=== PATIENT | male | born 1955 | race African-American/Black ===

== ENCOUNTER 2021-02-23 09:23 | Observation (INO) | payer MEDICAID, SELFPAY ==
[2021-02-23] VITALS (12 sets, daily range): BP systolic 110–145; BP diastolic 63–97; PULSE 68–90; RESP 11–28; TEMP 36.6–37.4; O2SAT 90–100; BMI 21.6; BMI 43.8
--- NOTE | 2021-02-23 09:20 | ECG_ITS ---
APPROVED REPORT Exam: Resting ECG HR:89 bpm ECG Measurements Heart Rate 89 AXES VA 142 P 76 QRSd 76 QRS 24 QT 344 T 54 QTc 418 Conclusion Normal sinus rhythm Nonspecific ST abnormality Abnormal ECG Electronically signed by : Bill Holliday, 02/26/2021 07:35:22
--- NOTE | 2021-02-23 09:24 | XR_ITS ---
PROCEDURE: XR CHEST PORTABLE CLINICAL HISTORY: soa Shortness of air, smoker COMPARISON: No exams were available for comparison FINDINGS: The cardiomediastinal silhouette and pulmonary vascularity are within normal limits. COPD changes. Patchy density right midlung which may be due to an area of atelectasis or or fibrosis versus a patchy area of infiltrate.. No acute bony abnormalities. IMPRESSION: Patchy airspace disease in the right midlung which may be due to an area of atelectasis or fibrosis versus infiltrate Dictated by: Magnus Ayoub MD 02/23/2021 10:13 Magnus Ayoub MD in [place] 02/23/2021 10:13
--- NOTE | 2021-02-23 09:42 | PC.NURSE ---
RT at bedside
[2021-02-23 09:45] LABS: Basophils # 0.1 K/mm3 (0-0.2); Basophils % 0.5 % (0.1-2.0); Eosinophils # 0.7 K/mm3 (0.0-0.4); Eosinophils % 3.2 % (0.1-12.0); Hematocrit 36.2 % (42.0-52.0); Hemoglobin 11.6 g/dL (14.1-18.0); Lymphocytes # 2.4 K/mm3 (0.7-4.5); Lymphocytes % 10.9 % (10-50); Mean Corpuscular Hemoglobin 30.1 pg (27.0-31.2); Mean Platelet Volume 9.2 fl (7.4-10.4); Monocytes # 1.6 K/mm3 (0.1-1.0); Monocytes % 7.3 % (1.7-9.3); Neutrophils # 16.9 K/mm3 (1.8-7.8); Neutrophils % 77.9 % (37.0-80.0); Platelet Count 573 K/mm3 (142-424); Red Blood Count 3.85 M/mm3 (4.60-6.20); Red Cell Distribution Width 14.6 % (11.5-17.5); White Blood Count 21.7 K/mm3 (4.8-10.8)
[2021-02-23 09:48] LABS: MANUAL DIFFERENTIAL MANUAL DIFFERENTIAL (MANUAL DIFF)
--- NOTE | 2021-02-23 09:56 | HMH.EDGENADL ---
ED Disposition Clinical Impression: Leukocytosis, Pneumonia Disposition: Admitted As Inpatient Condition on Discharge: Good Referrals: PCP,No [Primary Care Provider] - - Critical Care Critical Care Time: No Attestation: On 02/23/21, the high probability of a clinically significant, sudden or life threatening deterioration of the following system(s) required my full and direct attention, intervention and personal management. The time I documented below is in addition to time spent performing reported procedures but includes the following listed in this critical care notation. Medical Decision Making - Medical Records Medical records reviewed: Yes: I reviewed the patient's medical records. - Derrell Inquiry Pt receiving controlled substance: No Vital Signs: 02/23/21 09:23 02/23/21 10:00 02/23/21 10:15 Temperature 99.3 F Temperature Source Oral Pulse Rate 86 85 Pulse Rate [Radial] 90 Respiratory Rate 28 H 22 22 Blood Pressure 110/63 120/63 Blood Pressure [Right Arm] 145/97 H Blood Pressure Mean [Right Arm] 113 Blood Pressure Position [Right Arm] Sitting 02 Sat by Pulse Oximetry 90 L 95 95 Oxygen Delivery Method Room Air Nasal Cannula Oxygen Flow Rate (LPM) 3 02/23/21 11:00 02/23/21 11:30 Temperature Temperature Source Pulse Rate 82 Pulse Rate [Radial] Respiratory Rate 24 24 Blood Pressure 121/70 129/73 Blood Pressure [Right Arm] Blood Pressure Mean [Right Arm] Blood Pressure Position [Right Arm] 02 Sat by Pulse Oximetry 100 Oxygen Delivery Method Oxygen Flow Rate (LPM) - Lab Data Lab Results 02/23/21 09:34: WBC 21.7 H*, RBC 3.85 L, Hgb 11.6 L, Hct 36.2 L, MCV 94.0, MCH 30.1, MCHC 32.0, RDW 14.6, Plt Count 573 H, MPV 9.2, Neut % (Auto) 77.9, Lymph % (Auto) 10.9, [place] % (Auto) 7.3, Eos % (Auto) 3.2, Baso % (Auto) 0.5, Neut # (Auto) 16.9 H, Lymph # (Auto) 2.4, [place] # (Auto) 1.6 H, Eos # (Auto) 0.7 H, Baso # (Auto) 0.1, Total Counted 100, Neutrophils % (Manual) 81 H, Band Neutrophils % 1.0, Lymphocytes % (Manual) 9 L, Monocytes % (Manual) 6, Eosinophils % (Manual) 3, Platelet Estimate Moderate increase, RBC Morphology Normal 02/23/21 09:54: Lactate 1.3 02/23/21 10:15: Sodium 140, Potassium 3.8, Chloride 102, Carbon Dioxide 30, Anion Gap 11.8, BUN 9, Creatinine 0.70, Estimated Creat Clear 74, Estimated GFR 114, Est GFR ( Amer) 137, Glucose 190 H, Calcium 9.0, Magnesium 1.5 L, Troponin I < 0.01 Result diagrams: 02/23/21 09:34 02/23/21 10:15 Orders (Tests/Meds): ED MEDICATIONS Generic Name Dose Route Start Last Admin Trade Name Freq PRN Reason Stop Dose Admin Ceftriaxone Sodium 1 gm/ 50 mls @ 100 mls/hr 02/23/21 10:00 02/23/21 09:57 Sodium Chloride IV 03/09/21 09:59 100 mls/hr Q24H FADY Administration Protocol Azithromycin 500 mg/ Sodium 250 mls @ 250 mls/hr 02/23/21 10:00 02/23/21 11:41 Chloride IV 03/09/21 09:59 250 mls/hr Q24H FADY Administration Protocol Discontinued Medications Generic Name Dose Route Start Last Admin Trade Name Freq PRN Reason Stop Dose Admin Magnesium Sulfate 2 gm/ Sodium 104 mls @ 100 mls/hr 02/23/21 11:02 Chloride IV 02/23/21 12:04 ONCE ONE ORDERS Category Date Time Status Basic Metabolic Panel AMLAB Lab 02/24/21 06:00 Ordered Complete Blood Count Auto Diff AMLAB Lab 02/24/21 06:00 Ordered Full Resp Panel w/COVID ([facility]) Routine Lab 02/23/21 09:25 Received Lipid Panel AMLAB Lab 02/24/21 06:00 Ordered Magnesium AMLAB Lab 02/24/21 06:00 Ordered Phosphorous AMLAB Lab 02/24/21 06:00 Ordered Troponin I Q3H Lab 02/23/21 12:30 Ordered Troponin I Q3H Lab 02/23/21 15:30 Ordered Blood Culture Stat Micro 02/23/21 09:54 Received Sputum Culture & Gram Stain Stat Micro 02/23/21 09:45 Results Medical Decision Narrative: 66-year-old male presents with symptoms concerning for pneumonia. Vital signs were initially stable. Blood cultures and lactate were obtaine
[2021-02-23 10:12] LABS: Adenovirus,PCR Not Detected (NotDetected); Bordetella Pertussis Not Detected (NotDetected); Chlamydophila Pneumoniae, PCR Not Detected (NotDetected); Coronavirus 19, PCR Not Detected (NotDetected); Coronavirus 229E Not Detected (NotDetected); Coronavirus NL63 Not Detected (NotDetected); Coronavirus OC43 Not Detected (NotDetected); Coronovirus HKU1,PCR Not Detected (NotDetected); Human Metapneumovirus Not Detected (NotDetected); Influenza A, PCR Not Detected (NotDetected); Influenza AH1, 2009 Not Detected (NotDetected); Influenza AH1, PCR Not Detected (NotDetected); Influenza AH3,PCR Not Detected (NotDetected); Influenza B, PCR Not Detected (NotDetected); Mycoplasma Pneumoniae, PCR Not Detected (NotDetected); Parainfluenza 1, PCR Not Detected (NotDetected); Parainfluenza 2, PCR Not Detected (NotDetected); Parainfluenza 3, PCR Not Detected (NotDetected); Parainfluenza 4, PCR Not Detected (NotDetected); Respiratory Syncytial Virus Not Detected (NotDetected); Rhinovirus/Enterovirus Not Detected (NotDetected)
[2021-02-23 10:15] LABS: Eosinophils % 3 % (0-3); Lymphocytes % 9 % (10-50); Monocytes % 6 % (2-9); Neutrophils % 81 % (42-76); Total Cells Counted 100
[2021-02-23 10:16] LABS: Platelet Estimate Moderate Increase; RBC Morphology Normal
[2021-02-23 10:19] LABS: Lactic Acid 1.3 mmol/L (0.7-2.1)
--- NOTE | 2021-02-23 10:30 | PC.NURSE ---
PT RESTING UPDATED ON PLAN OF CARE
[2021-02-23 10:33] LABS: Chloride 102 mmol/L (98-107); Sodium 140 mmol/L (136-145)
[2021-02-23 10:34] LABS: Potassium 3.8 mmoL/L (3.5-5.1)
[2021-02-23 10:36] LABS: Blood Urea Nitrogen 9 mg/dl (9-20); Creatinine Clearance Estimated 74 mL/min (50-200); Estimated Glomerular Filt Rate 114 ml/min (>60); GFR (African American) 137 ML/MIN (>60)
[2021-02-23 10:37] LABS: Anion Gap 11.8 mEq/L (5-15); Carbon Dioxide 30 mmol/L (22.0-30.0); Glucose 190 mg/dl (74-100); Magnesium 1.5 mg/dl (1.6-2.3)
[2021-02-23 10:56] LABS: Troponin I < 0.01 ng/ml (0.00-0.034)
--- NOTE | 2021-02-23 11:40 | PC.NURSE ---
call center coordinator for Dr Brown paged. Dr Ventura to return call.
--- NOTE | 2021-02-23 12:30 | PC.NURSE ---
Dr Oleary speaking with Dr Ventura
--- NOTE | 2021-02-23 13:30 | PC.NURSE ---
Pt arrived to the floor at this time.
--- NOTE | 2021-02-23 14:06 | P.CONPHA_ITS ---
[facility] Pharmacy VTE Monitoring - Patient Demographics Admission date: 02/23/21 Report Date: 02/23/21 Time: 14:07 Allergies/Adverse Reactions: Patient Allergies fluphenazine Allergy (Verified 02/23/21 09:47) haloperidol [From Haldol] Allergy (Verified 02/23/21 09:47) Height: 1.8 m Weight: 70.307 kg Patient Problems: Current Active Problems Leukocytosis (Acute) Pneumonia (Acute) - VTE Risk Labs: VTE Related Lab Results Hgb 11.6 g/dL (14.1-18.0) L 02/23/21 09:34 Hct 36.2 % (42.0-52.0) L 02/23/21 09:34 Plt Count 573 K/mm3 (142-424) H 02/23/21 09:34 BUN 9 mg/dl (9-20) 02/23/21 10:15 Creatinine 0.70 mg/dl (0.66-1.25) 02/23/21 10:15 Estimated Creat Clear 74 mL/min (50-200) 02/23/21 10:15 VTE Score: 4 VTE Risk Level: Low Risk - Prophylaxis VTE Prophylaxis Ordered?: Yes Types of VTE Prophylaxis: TEDS Knee High Location of Applied Device: Bilateral Lower Extremeties
[2021-02-23 14:12] LABS: Troponin I < 0.01 ng/ml (0.00-0.034)
[2021-02-23 16:23] LABS: Troponin I < 0.01 ng/ml (0.00-0.034)
[2021-02-23 16:34] LABS: POC Glucose,Bedside 73 (70-110)
--- NOTE | 2021-02-23 19:40 | PC.NURSE ---
PT IS RESTING IN BED. NO COMPLAINTS OF DISCOMFORT. ACCORDING TO PT HE HAS ONLY BEEN AT [facility] FOR ABOUT 4 MONTHS. PT LIVED IN A FACILITY AT [place] FOR SEVERAL YEARS UNTIL THE FACILITY SHUT DOWN AND HE WAS TRANSFERRED TO [facility]. PT STATES ALL THE WAY UP TILL A COUPLE OF DAYS AGO HE WAS UP AMBULATING AND GOING OUTSIDE. PT STATED THE LAST FEW DAYS HIS COUGH HAS GOT WORSE AND HE'S BEEN VERY WEAK. ON ASSESSMENT PT HAD SCATTERED WHEEZES/RHONCHI. ABDOMEN SOFT/NON TENDER WITH ACTIVE BOWEL SOUNDS. SCAR NOTED TO THE ABDOMEN THAT PT STATES IS FROM A SURGERY (PT STATED THEY REMOVED 1/2 OF HIS LEFT KIDNEY AND SPLEEN 4 MONTHS AGO DUE TO CANCER) . ACCORDING TO STAFF FROM [facility] HE HAS HAD HALF OF BOTH KIDNEYS REMOVED AND HIS SPLEEN AND THE SURGERY TOOK PLACE YEARS AGO. ACCORDING TO PT AND [facility] STAFF HE HAS NOT FOLLOWED UP WITH THE DOCTORS THAT DID THE SURGERY. PT HAS MULTIPLE TATTOOS THAT HE STATED HE GOT [facility]. PT HAD A TOTAL BATH THIS SHIFT. PT STATES HE HAS HAD SOME WEIGHT LOSS RECENTLY BUT DID NOT KNOW HOW MUCH. REPORT HAND OFF TO JULIET ZEPEDA.
--- NOTE | 2021-02-23 22:32 | PC.NURSE ---
RA SATS WERE 91%. PT WAS NOT PLACED BACK ON O2.
[2021-02-24] VITALS: BP 132/64; PULSE 70; RESP 17; TEMP 36.6; O2SAT 94
[2021-02-24 04:00] VITALS: BP 127/82; PULSE 70; PULSE 80; RESP 17; TEMP 36.6; O2SAT 94
--- NOTE | 2021-02-24 05:04 | PC.NURSE ---
pt is AxOx4, has rested most of shift, expiratory rhonchi noted on auscultation, has been on room air t/o most of shift with O2 sats at 94%, no complaints of SOA or chest pain
[2021-02-24 05:30] VITALS: BMI 43.9
--- NOTE | 2021-02-24 07:49 | SW/DCPLANNER ---
This patient currently resides at [facility]. I have spoke with Jennifer from [facility] and she stated that patient does well at their facility physically. I will continue to follow up with Jennifer until patient is medically stable for discharge.
[2021-02-24 08:00] VITALS: BP 147/88; PULSE 80; PULSE 83; RESP 17; TEMP 36.7; O2SAT 95
[2021-02-24 08:31] LABS: Basophils # 0.1 K/mm3 (0-0.2); Basophils % 0.4 % (0.1-2.0); Eosinophils # 0.6 K/mm3 (0.0-0.4); Hematocrit 36.4 % (42.0-52.0); Hemoglobin 11.2 g/dL (14.1-18.0); Lymphocytes # 1.6 K/mm3 (0.7-4.5); Lymphocytes % 7.8 % (10-50); Mean Corpuscular HGB Conc 30.7 g/dL (31.8-35.4); Mean Corpuscular Volume 94.4 fl (80-94); Mean Platelet Volume 8.4 fl (7.4-10.4); Monocytes # 1.2 K/mm3 (0.1-1.0); Monocytes % 6.2 % (1.7-9.3); Neutrophils # 16.4 K/mm3 (1.8-7.8); Neutrophils % 82.6 % (37.0-80.0); Platelet Count 566 K/mm3 (142-424); Red Blood Count 3.85 M/mm3 (4.60-6.20); Red Cell Distribution Width 14.8 % (11.5-17.5); White Blood Count 19.9 K/mm3 (4.8-10.8)
[2021-02-24 08:34] LABS: MANUAL DIFFERENTIAL MANUAL DIFFERENTIAL (MANUAL DIFF)
[2021-02-24 08:36] LABS: Chloride 99 mmol/L (98-107); Sodium 139 mmol/L (136-145)
[2021-02-24 08:37] LABS: Potassium 4.2 mmoL/L (3.5-5.1)
[2021-02-24 08:39] LABS: Blood Urea Nitrogen 9 mg/dl (9-20); Creatinine Clearance Estimated 67 mL/min (50-200); Estimated Glomerular Filt Rate 114 ml/min (>60); GFR (African American) 137 ML/MIN (>60)
[2021-02-24 08:40] LABS: Anion Gap 11.2 mEq/L (5-15); Calcium 9.2 mg/dl (8.4-10.2); Carbon Dioxide 33 mmol/L (22.0-30.0); Chol/HDL Ratio 5.7 (1-3.5); Cholesterol 120 mg/dl (140-200); Glucose 228 mg/dl (74-100); HDL Cholesterol 21 mg/dl (40-60); Magnesium 1.8 mg/dl (1.6-2.3); Phosphorous 3.8 mg/dl (2.5-4.5); Triglycerides 144 mg/dl (30-150); VLDL Cholesterol 29 mg/dL (0-40)
[2021-02-24 08:51] LABS: Direct LDL Cholesterol 53.03 mg/dL (100-129)
[2021-02-24 08:55] LABS: Eosinophils % 4 % (0-3); Lymphocytes % 4 % (10-50); Monocytes % 10 % (2-9); Neutrophils % 81 % (42-76); Platelet Estimate Moderate Increase; RBC Morphology Normal; Total Cells Counted 100
--- NOTE | 2021-02-24 09:59 | HMH.OTEV ---
OT Inpatient Evaluation Rehab OT IP Evaluation Start: 02/24/21 09:15 Freq: ONCE Status: Complete Protocol: Document 02/24/21 09:51 MARY JANE (Rec: 02/24/21 09:59 ARELIFERNANDEZ [id number]) Rehab OT IP Assessment Subjective History 66-year-old male with history of renal cancer presents with cough for the last few days. He says that he has been short of breath as well. No chest pain. He claims to have subjective fever as well. He lives in assisted living area but does not have help routinely. Has productive cough. No abdominal pain nausea vomiting headaches. Recent COVID-19 exposures. Patient admitted on 02/23/21 for Leukocytosis, Pneumonia. Patient currently lives in personal retirement of [facility] where he completed all ADLs and fx'l tasks independently. Instructed Patient on safety awareness during bed mobility, transfers and ambulation to assess safety and balance. Instructed Patient on ADL of d/d footwear material. However Patient refused to participate in ADL task. Subjective I can try to stand up. Patient completed bed mobility , transfers and ambulation with no AE/devices requiring Min A for proper sequencing, safety and fair+ dynamic standing balance. LOB noted x1 with requiring assistance to prevent fall risk. Objective Patient Orientation Person,Place,Name,Birthday, Year Upper Extremity Gross ROM WNL Bed Mobility bed mobility - supine/sit Assist Level Minimal x 1 (25% assist) Transfer Training Sit/Stand/Pivot Transfer Assist Level Minimal x 1 (25% assist) Chair Transfer Ability Minimal x 1 (25% assist) Chair Transfer Technique Sit to/from Ambulatory Chair Transfer Assistive Devices None Rehab OT IP prob,goals,plan
--- NOTE | 2021-02-24 11:45 | HMH.PTEV ---
Physical Therapy Evaluation Rehab PT IP Evaluation Start: 02/24/21 09:15 Freq: ONCE Status: Active Protocol: Document 02/24/21 11:00 ERIK (Rec: 02/24/21 11:45 [id number]) Subjective/History History History 66 yowm adm with CAP and general weaskness. He resides at a personal chcf and is independent with all mobility prior to adm. Subjective Subjective Pt with no c/o this am, agrees to OOB. Rehab PT IP Eval Objective Appearance Patient Behavior Appropriate Patient Orientation Person,Place,Time Difficulty following instructions none Speech Pattern Clear Ambulation Patient Able to Ambulate Yes Ambulation Observation IP General Gait Pattern Observation Wide Based Gait Ambulation Distance (feet) 40 Ambulation Assistive Device None Ambulation Ability Supervision/Stand by Balance Ability to Arise Able, uses arms to help Sitting Balance Steady, safe Standing Balance Narrow stance w/o support Dynamic Sitting Balance Ability Good Dynamic Standing Balance Ability Good Transfers Bed Transfer Ability Supervision/Stand by Chair Transfer Ability Supervision/Stand by Sit to Stand Bed Transfer Ability Supervision/Stand by Sit to Stand Chair Transfer Ability Supervision/Stand by ROM All Extremities PT ROM Status WFL MMT All Extremities PT MMT WFL Rehab PT IP prob,goals,plan Problems Date of Evaluation: 02/24/21 Discharge Plan PT Discharge Plan Pt is independent with all mobility at this time and is appropriate to return to personal chcf once medically stable. No inpatient therapy needs at this time. G -code Required No Eval Complexity Eval Charge Codes 70997 - Moderate Complexity PHYSICIAN CERTIFICATION: I certify the specified therapy services for Ba Russell are required, authorized, and reviewed every 30 days.
[2021-02-24 12:00] VITALS: BP 172/93; PULSE 80; PULSE 94; RESP 24; TEMP 36.9; O2SAT 91
--- NOTE | 2021-02-24 13:24 | HMH.PHAINT ---
MEDICATION RECONCILIATION COMPLETED ON PATIENT USING MAR FROM [facility]. -ÓSCAR LÓPEZ, SOWMYAD
[2021-02-24 16:00] VITALS: BP 131/67; PULSE 80; PULSE 87; RESP 18; TEMP 36.9; O2SAT 93
--- NOTE | 2021-02-24 17:21 | HMH.HP ---
*Admission Date: 02/23/21 *Chief complaint: soa *History of present illness: 66-year-old male from a personal residential with history of renal cancer presents with cough for the last few days.Pt states he has been soa, o2 sat 90% on room air, increase work for breathing, coughing up thick sputum,fever and denies n/V/D. No chest pain. No abdominal pain nausea vomiting headaches. Pt admitted for pneumonia. [facility] History I have reviewed the patient's past medical history: Yes Medical History: Reports:: Cancer (kidney cancer), Diabetes Mellitus Type 2 Denies:: Diabetes Mellitus Type 1, MRSA *Have you ever received a pneumonia vaccine?: Yes *Have you received a flu vaccine this season?: Yes Other Surgeries: Yes: Cardiac Catheterization Amputation: No Fractures: No - *Social History Last grade of school completed: 5th or 6th Smoking Status: Current every day smoker Tobacco Type: cigarettes, smokeless tobacco # Packs/Day (cigarettes): 1 Alcohol Intake: former *Occupational Status:: disabled Housing: assisted living facility *Travel in the last 8 weeks: None Family Hx:: Unable to obtain Review of Systems - Review of Systems Review of systems:: pertinent systems reviewed and negative unless documented below - Constitutional Reports fever(s) - Eyes Denies blurry vision - ENT Denies dry mouth - *Cardiovascular Reports shortness of breath, Reports shortness of breath with activity, Denies chest pain with activity - *Respiratory Reports cough, Reports shortness of breath with activity ( ) - *Gastrointestinal Denies abdominal pain - *Genitourinary Denies urinary frequency - *Musculoskeletal Denies joint pain - Integumentary/Breasts Denies rash - *Neurologic Denies dizziness, Denies headache(s), Denies numbness, Denies weakness - Psychiatric Denies lack of enjoyment - Endocrine Denies excessive sweating - Hematologic/Lymphatic Denies enlarged lymph nodes - Allergic/Immunologic Denies itchy eyes Meds Home Medications Medication Instructions Recorded Confirmed Type Albuterol Sulfate [Proair 1 puff IH Q6HP PRN 02/23/21 02/24/21 History Digihaler] Aspirin [Aspirin 325mg Tab] 325 mg PO DAILY 02/23/21 02/23/21 History Azelastine HCl [Azelastine Nasal 2 sprays NS BID 02/23/21 02/24/21 History [place] 30mL Bottle] Divalproex Sodium [Divalproex 500 mg PO TID 02/23/21 02/23/21 History Sodium ER] Ferrous Sulfate 325 mg PO BID 02/23/21 02/24/21 History Ipratropium/Albuterol Sulfate 1 puff IH TID 02/23/21 02/24/21 History [Combivent Respimat Inh] Isosorbide Mononitrate [Isosorbide 30 mg PO DAILY 02/23/21 02/23/21 History Mononitrate ER] Levothyroxine Sodium 25 mcg PO DAILY 02/23/21 02/23/21 History [Levothyroxine 25mcg (0.025mg) Tab] Metformin HCl [Metformin 1000mg 1,000 mg PO BIDWM 02/23/21 02/24/21 History Tablets] Metoprolol Succinate [Metoprolol 100 mg PO BID 02/23/21 02/24/21 History Succinate 100mg Tablet*] Nitroglycerin 0.4 mg SL Q5MINP PRN 02/23/21 02/24/21 History OLANZapine [Zyprexa 5mg tablet] 5 mg PO HS 02/23/21 02/23/21 History OLANZapine [Zyprexa] 10 mg PO BID 02/23/21 02/23/21 History Omeprazole 20 mg PO DAILY 02/23/21 02/23/21 History Roflumilast [Daliresp] 250 mcg PO DAILY 02/23/21 02/23/21 History Rosuvastatin Calcium 10 mg PO HS 02/23/21 02/24/21 History Sennosides/Docusate Sodium 1 each PO DAILY 02/23/21 02/23/21 History [Senexon-S 50-8.6 mg Tablet] Sertraline HCl 150 mg PO DAILY 02/23/21 02/24/21 History Sitagliptin Phosphate [Januvia 100 mg PO DAILY 02/23/21 02/23/21 History 100mg tablet] Zafirlukast 20 mg PO BID 02/23/21 02/23/21 History clonazePAM [Clonazepam] 0.5 mg PO BID 02/23/21 02/23/21 History lisinopriL [Lisinopril] 5 mg PO DAILY 02/23/21 02/23/21 History polyethylene glycoL 3350 [Gavilax] 17 gm PO DAILY 02/23/21 02/24/21 History Acetaminophen [Acetaminophen Extra 1,000 mg PO TIDP PRN 02/24/21 02/24/21 History Strength] Fluticas
--- NOTE | 2021-02-24 17:51 | PC.NURSE ---
Pt has been pleasant and cooperative this shift. A&O X4. No complaints of pain or SOA. Pt requested cough medicine this AM and received Robitussin per MAR with favorable results. Pt is on room air with sats. >90%. Telemetry reveals NSR. Lung sounds reveal inspiratory/expiratory rhonchi. No edema noted. Skin is C/D/I. Pt uses the urinal to void clear, yellow urine without issue. No BM this shift. Pt ambulates to/from the bathroom and throughout the room with stand-by assistance. Pt worked with PT/OT this shift and sat up in the recliner for a couple hours today. 20 G peripheral IV in the RT wrist is patent and infusing NS @ 50 ML/HR. Bed safety alarm is set. VSS. Call light within reach. Will continue to monitor.
[2021-02-24 20:00] VITALS: BP 114/62; PULSE 80; RESP 20; TEMP 36.6; O2SAT 92
[2021-02-25] VITALS (7 sets, daily range): BP systolic 104–113; BP diastolic 53–65; PULSE 60–80; RESP 16–18; TEMP 36.6–36.9; O2SAT 92–93; BMI 26.4
--- NOTE | 2021-02-25 05:30 | PC.NURSE ---
pt has rested well t/o shift, remains on room air, inspiratory and expiratory rhonchi noted on auscultation, O2 sats 92-93%, no complaints of SOA or chest pain, did complain of cough
--- NOTE | 2021-02-25 11:24 | HMH.DCSUM ---
General - General Admission date:: 02/23/21 Discharge date: 02/25/21 HPI HPI: 66-year-old male from a personal residential with history of renal cancer presents with cough for the last few days.Pt states he has been soa, o2 sat 90% on room air, increase work for breathing, coughing up thick sputum,fever and denies n/V/D. No chest pain. No abdominal pain nausea vomiting headaches. Pt admitted for pneumonia. Hospital Course Hospital Course: Laboratory Tests 02/23/21 02/23/21 02/23/21 09:25 09:34 09:54 WBC 21.7 H* RBC 3.85 L Hgb 11.6 L Hct 36.2 L MCV 94.0 MCH 30.1 MCHC 32.0 RDW 14.6 Plt Count 573 H MPV 9.2 Neut % (Auto) 77.9 Lymph % (Auto) 10.9 [place] % (Auto) 7.3 Eos % (Auto) 3.2 Baso % (Auto) 0.5 Neut # (Auto) 16.9 H Lymph # (Auto) 2.4 [place] # (Auto) 1.6 H Eos # (Auto) 0.7 H Baso # (Auto) 0.1 Total Counted 100 Neutrophils % (Manual) 81 H Band Neutrophils % 1.0 Lymphocytes % (Manual) 9 L Atypical Lymphs % Monocytes % (Manual) 6 Eosinophils % (Manual) 3 Platelet Estimate Moderate increase RBC Morphology Normal Sodium Potassium Chloride Carbon Dioxide Anion Gap BUN Creatinine Estimated Creat Clear Estimated GFR Est GFR ( Amer) Glucose POC Glucose Lactate 1.3 Calcium Phosphorus Magnesium Troponin I Triglycerides Cholesterol LDL Cholesterol Direct VLDL Cholesterol HDL Cholesterol Cholesterol/HDL Ratio Chlamy pneumoniae PCR Not detected Adenovirus (PCR) Not detected B. pertussis DNA (PCR) Not detected Coronavirus OC43 (PCR) Not detected Coronavirus HKU1 (PCR) Not detected Coronavirus 229E (PCR) Not detected SARS-CoV-2 (PCR) Not detected Coronavirus NL63 (PCR) Not detected Human Metapneumovir PCR Not detected Influenza A (H1) PCR Not detected Influ A (H1N1/09) PCR Not detected Influenza A (H3) PCR Not detected Influenza Type A (PCR) Not detected Influenza Type B (PCR) Not detected M. pneumoniae (PCR) Not detected Parainfluenza 1 (PCR) Not detected Parainfluenza 2 (PCR) Not detected Parainfluenza 3 (PCR) Not detected Parainfluenza 4 (PCR) Not detected RSV (PCR) Not detected Entero/Rhino (PCR) Not detected 02/23/21 02/23/21 02/23/21 10:15 13:25 15:48 WBC RBC Hgb Hct MCV MCH MCHC RDW Plt Count MPV Neut % (Auto) Lymph % (Auto) [place] % (Auto) Eos % (Auto) Baso % (Auto) Neut # (Auto) Lymph # (Auto) [place] # (Auto) Eos # (Auto) Baso # (Auto) Total Counted Neutrophils % (Manual) Band Neutrophils % Lymphocytes % (Manual) Atypical Lymphs % Monocytes % (Manual) Eosinophils % (Manual) Platelet Estimate RBC Morphology Sodium 140 Potassium 3.8 Chloride 102 Carbon Dioxide 30 Anion Gap 11.8 BUN 9 Creatinine 0.70 Estimated Creat Clear 74 Estimated GFR 114 Est GFR ( Amer) 137 Glucose 190 H POC Glucose Lactate Calcium 9.0 Phosphorus Magnesium 1.5 L Troponin I < 0.01 < 0.01 < 0.01 Triglycerides Cholesterol LDL Cholesterol Direct VLDL Cholesterol HDL Cholesterol Cholesterol/HDL Ratio Chlamy pneumoniae PCR Adenovirus (PCR) B. pertussis DNA (PCR) Coronavirus OC43 (PCR) Coronavirus HKU1 (PCR) Coronavirus 229E (PCR) SARS-CoV-2 (PCR) Coronavirus NL63 (PCR) Human Metapneumovir PCR Influenza A (H1) PCR Influ A (H1N1/09) PCR Influenza A (H3) PCR Influenza Type A (PCR) Influenza Type B (PCR) M. pneumoniae (PCR) Parainfluenza 1 (PCR) Parainfluenza 2 (PCR) Parainfluenza 3 (PCR) Parainfluenza 4 (PCR) RSV (PCR) Entero/Rhino (PCR) 02/23/21 02/24/21 02/24/21 15:51 08:05 08:05 WBC 19.9 H RBC 3.85 L Hgb 11.2 L Hct 36.
== END 2021-02-25 13:20 | disposition home or self-care (01) ==
LOC: ER 12:40 → 2ND 13:27
PROVIDERS: Admitting Provider Family Medicine; Emergency Provider Emergency Medicine; PCP Emergency Medicine; Visit Provider Family Medicine
DX: J18.9 Pneumonia, unspecified organism (principal); C64.9 Malignant neoplasm of unspecified kidney, except renal pelvis; E11.9 Type 2 diabetes mellitus without complications; Z79.84 Long term (current) use of oral hypoglycemic drugs; Z79.899 Other long term (current) drug therapy; Z72.0 Tobacco use
CPT/HCPCS: 36415; 71045; 80048; 80061; 82962; 83605; 83735; 84100; 84484; 85007; 85025; 87040; 87070; 87186; 87205; 87581; 87633; 87798; 93005; 94640; 94760; 94761; 96365; 96367; 97162; 97165; 97530; 99284; G0378; J0456

== ENCOUNTER 2021-03-04 21:39 | Emergency (ER) | payer MEDICAID, SELFPAY ==
[2021-03-04 21:37] VITALS: BP 124/80; PULSE 76; RESP 18; TEMP 36.7; O2SAT 100; BMI 24.4
[2021-03-04 22:00] VITALS: BP 134/71; PULSE 79; O2SAT 96
[2021-03-04 22:30] VITALS: BP 127/63; PULSE 75
[2021-03-04 22:34] LABS: Basophils # 0.1 K/mm3 (0-0.2); Basophils % 0.6 % (0.1-2.0); Eosinophils % 18.9 % (0.1-12.0); Hematocrit 33.3 % (42.0-52.0); Hemoglobin 10.1 g/dL (14.1-18.0); Lymphocytes # 4.1 K/mm3 (0.7-4.5); Lymphocytes % 25.5 % (10-50); Mean Corpuscular HGB Conc 30.5 g/dL (31.8-35.4); Mean Corpuscular Hemoglobin 29.3 pg (27.0-31.2); Mean Corpuscular Volume 96.2 fl (80-94); Mean Platelet Volume 8.3 fl (7.4-10.4); Monocytes # 1.1 K/mm3 (0.1-1.0); Monocytes % 6.7 % (1.7-9.3); Neutrophils # 7.7 K/mm3 (1.8-7.8); Neutrophils % 48.4 % (37.0-80.0); Red Blood Count 3.46 M/mm3 (4.60-6.20); Red Cell Distribution Width 15.3 % (11.5-17.5); White Blood Count 15.9 K/mm3 (4.8-10.8)
[2021-03-04 22:35] LABS: Platelet Count 649 K/mm3 (142-424)
[2021-03-04 22:36] LABS: MANUAL DIFFERENTIAL MANUAL DIFFERENTIAL (MANUAL DIFF)
[2021-03-04 22:42] LABS: Alanine Aminotransferase 12 U/L (12-78); Albumin/Globulin Ratio 0.9 (1.1-1.8); Alkaline Phosphatase 101 U/L (38-126); Anion Gap 11.8 mEq/L (5-15); Aspartate Amino Transferase 23 U/L (17-59); Blood Urea Nitrogen 4 mg/dl (9-20); Calcium 8.5 mg/dl (8.4-10.2); Carbon Dioxide 27 mmol/L (22.0-30.0); Chloride 106 mmol/L (98-107); Creatinine Clearance Estimated 86 mL/min (50-200); Estimated Glomerular Filt Rate 97 ml/min (>60); GFR (African American) 118 ML/MIN (>60); Globulin 3.5 g/dL (1.3-3.2); Glucose 161 mg/dl (74-100); Potassium 3.8 mmoL/L (3.5-5.1); Sodium 141 mmol/L (136-145); Total Protein,Serum 6.5 g/dl (6.3-8.2)
[2021-03-04 22:47] LABS: C-Reactive Protein 5.4 mg/L (0-4)
[2021-03-04 22:51] LABS: Bilirubin,Total < 0.1 mg/dl (0.2-1.3); Ethyl Alcohol < 10 mg/dl (0-10)
[2021-03-04 22:52] LABS: Acetaminophen < 10 ug/ml (10-30); Salicylate < 1.0 mg/dL (2.0-20.0)
[2021-03-04 22:54] LABS: Valproic Acid, (Depakene) 41.4 ug/ml (50-100)
[2021-03-04 23:00] VITALS: BP 132/70; PULSE 72
[2021-03-04 23:00] LABS: Erythrocyte Sedimentation Rate > 140 mm/hr (0-20)
--- NOTE | 2021-03-04 23:03 | HMH.EDPSYCH ---
ED Disposition Clinical Impression: Chronic schizophrenia, COPD (chronic obstructive pulmonary disease) with acute bronchitis Disposition: Home, Self-Care Condition on Discharge: Good Instructions: DI for Psychosis Additional Instructions: will see pcp for follow up Referrals: Stephane Brown MD [Primary Care Provider] - - Critical Care Critical Care Time: No Attestation: On 03/04/21, the high probability of a clinically significant, sudden or life threatening deterioration of the following system(s) required my full and direct attention, intervention and personal management. The time I documented below is in addition to time spent performing reported procedures but includes the following listed in this critical care notation. Medical Decision Making - Medical Records Medical records reviewed: Yes: I reviewed the patient's medical records. - Derrell Inquiry Pt receiving controlled substance: No Vital Signs: 03/04/21 21:37 03/04/21 22:00 03/04/21 22:30 Temperature 98.1 F Temperature Source Oral Pulse Rate 79 75 Pulse Rate [Right] 76 Respiratory Rate 18 Blood Pressure 134/71 127/63 Blood Pressure [Right Arm] 124/80 Blood Pressure Mean 88 84 Blood Pressure Mean [Right Arm] 94 Blood Pressure Source [Right Arm] Automatic Cuff 02 Sat by Pulse Oximetry 100 96 Oxygen Delivery Method Room Air 03/04/21 23:00 03/05/21 00:01 03/05/21 00:30 Temperature Temperature Source Pulse Rate 72 61 Pulse Rate [Right] Respiratory Rate Blood Pressure 132/70 166/90 H 172/90 H Blood Pressure [Right Arm] Blood Pressure Mean 90 103 117 Blood Pressure Mean [Right Arm] Blood Pressure Source [Right Arm] 02 Sat by Pulse Oximetry 95 96 Oxygen Delivery Method Room Air Room Air - Lab Data Lab results reviewed: Yes: I reviewed the patient's lab results. Lab Results 03/04/21 22:20: WBC 15.9 H, RBC 3.46 L, Hgb 10.1 L, Hct 33.3 L, MCV 96.2 H, MCH 29.3, MCHC 30.5 L, RDW 15.3, Plt Count 649 H, MPV 8.3, Neut % (Auto) 48.4, Lymph % (Auto) 25.5, [place] % (Auto) 6.7, Eos % (Auto) 18.9 H, Baso % (Auto) 0.6, Neut # (Auto) 7.7, Lymph # (Auto) 4.1, [place] # (Auto) 1.1 H, Eos # (Auto) 3.0 H, Baso # (Auto) 0.1, ESR > 140 H 03/04/21 22:20: Sodium 141, Potassium 3.8, Chloride 106, Carbon Dioxide 27, Anion Gap 11.8, BUN 4 L, Creatinine 0.80, Estimated Creat Clear 86, Estimated GFR 97, Est GFR ( Amer) 118, Glucose 161 H, Calcium 8.5, Total Bilirubin < 0.1 L, AST 23, ALT 12, Alkaline Phosphatase 101, C-Reactive Protein 5.4 H, Total Protein 6.5, Albumin 3.0 L, Globulin 3.5 H, Albumin/Globulin Ratio 0.9 L, Salicylates < 1.0 L, Acetaminophen < 10 L 03/04/21 22:20: Plasma/Serum Alcohol < 10 03/04/21 22:20: TSH 1.09, Thyroxine (T4) 9.3, Total Valproic Acid 41.4 L 03/04/21 22:20: Troponin I < 0.01 03/04/21 23:27: Urine Color Yellow, Urine Appearance Clear, Urine pH 6.0, Ur Specific [place] 1.010, Urine Protein Negative, Urine Glucose (UA) Negative, Urine Ketones Negative, Urine Blood Negative, Urine Nitrate Negative, Urine Bilirubin Negative, Urine Urobilinogen 0.2, Ur Leukocyte Esterase Negative, Urine RBC None, Urine WBC None, Ur Squamous Epith Cells Occasional, Urine Bacteria None Result diagrams: 03/04/21 22:20 03/04/21 22:20 Orders (Tests/Meds): ED MEDICATIONS Generic Name Dose Route Start Last Admin Trade Name Freq PRN Reason Stop Dose Admin Sodium Chloride 1,000 mls @ 999 mls/hr 03/04/21 22:15 03/04/21 22:26 Sod Chlor 0.9% 1000ml Bag IV 03/04/21 23:15 999 mls/hr .Q1H1M FADY Administration ORDERS Category Date Time Status CT chest wo con Stat Cat Scan 03/04/21 23:[address] head/brain wo con Stat Cat Scan 03/04/21 23:32 Taken Complete Blood Count Auto Diff Stat Lab 03/04/21 22:20 Results Drug Screen,Urine Stat Lab 03/04/21 23:27 Received Erythrocyte Sedimentation Rate Stat Lab 03/04/21 22:20 Results Troponin I Q3H Lab 03/05/21 02:15 Ordered Troponin I Q3H Lab
[2021-03-04 23:08] LABS: T4 (Thyroxine) 9.3 ug/dl (5.53-11.0)
--- NOTE | 2021-03-04 23:08 | CT_ITS ---
PROCEDURE: CT CHEST WO CON CLINICAL INDICATION: CHEST PAIN COMPARISON: CR XR CHEST PORTABLE from 02/23/2021 TECHNIQUE: Axial images obtained with sagittal and coronal reformats. All CT scans at the facility use one or more dose reduction, viz: automated exposure control, ma/kV adjustment per patient size (including targeted exams where dose is matched to indication, i.e. head), or iterative reconstruction technique. FINDINGS: Coronary artery stents and or calcifications noted. There are few scattered small mediastinal lymph nodes. Prominent paraseptal emphysematous changes are present with scattered blebs/bulla. Bronchial thickening with bronchiectasis with scattered cystic changes within the lungs.. There are trace bilateral effusions. Mild atelectatic changes are present in the lung bases. There postsurgical changes in the upper abdomen on the left. Prior left nephrectomy. Prior splenectomy. Nodular soft tissue density with partial calcification/sutures noted in the left upper abdomen posteriorly in the surgical bed and may be due to a splenule measuring 3 cm. Follow-up may confirm stability. No acute bony findings. IMPRESSION: 1. Widespread airway thickening with bronchiectasis and scattered cystic changes along with paraseptal emphysema. Bronchitis with bronchiectasis is considered. The multiple cystic changes could be infective in nature. Langerhans histiocytosis x is a consideration. There are trace bilateral effusions. Pulmonology consult suggested. 2. Postsurgical changes in the upper abdomen on the left Dictated by: Magnus Ayoub MD 03/05/2021 07:47 Magnus Ayoub MD in [facility] 03/05/2021 07:47
[2021-03-04 23:22] LABS: Thyroid Stimulating Hormone 1.09 uIU/mL (0.465-4.68)
--- NOTE | 2021-03-04 23:32 | CT_ITS ---
PROCEDURE: CT HEAD/BRAIN WO CON CLINICAL INDICATION: AMS Altered mental status, altered level of consciousness, confusion, disorientation COMPARISON: No exams were available for comparison TECHNIQUE: Axial images obtained. All CT scans at the facility use one or more dose reduction, viz: automated exposure control, ma/kV adjustment per patient size (including targeted exams where dose is matched to indication, i.e. head), or iterative reconstruction technique. FINDINGS: No midline shift, mass effect, intracranial hemorrhage, hydrocephalus, or extra-axial fluid collection is evident. There is generalized atrophy with hypoattenuation of the periventricular white matter consistent with microangiopathic changes. The calvarium has an unremarkable appearance. Right-sided mastoid effusion. Mild mucosal thickening of the ethmoid sinuses. There is an old left orbital floor and infraorbital rim fracture status post ORIF. IMPRESSION: No acute intracranial finding Dictated by: Magnus Ayoub MD 03/05/2021 07:29 Magnus Ayoub MD in [facility] 03/05/2021 07:29
[2021-03-04 23:44] LABS: Microscopic, Urine URINE MICROSCOPIC (MICROSCOPIC)
[2021-03-04 23:51] LABS: Appearance,Urine CLEAR (Clear); Bilirubin,Urine Negative (Negative); Blood, Urine Negative (Negative); Color,Urine YELLOW (Yellow); Glucose,Urine (UA) Negative (Negative); Ketones,Urine Negative (Negative); Leukocyte Esterase,Urine Negative (Negative); Nitrate,Urine Negative (Negative); Protein,Urine Negative (Negative); Urobilinogen,Urine 0.2 EU/dl (0.2)
[2021-03-05 00:01] VITALS: BP 166/90; PULSE 61; O2SAT 95
[2021-03-05 00:06] LABS: Troponin I < 0.01 ng/ml (0.00-0.034)
[2021-03-05 00:16] LABS: Squamous Epithelial Cell,Urine Occasional #/hpf (0-5)
--- NOTE | 2021-03-05 00:19 | PC.NURSE ---
Lab called to inform of UDS analyzer being down and results will be delayed.
--- NOTE | 2021-03-05 00:25 | PC.NURSE ---
After reviewing pt's med list, pt reports he wants off zoloft and not seroquel. aware.
[2021-03-05 00:30] VITALS: BP 172/90; O2SAT 96
--- NOTE | 2021-03-05 00:34 | PC.NURSE ---
called Cha to notify that Dr. Brown would like to s/w Jennifer regarding pt. Cha will have Jennifer call us back.
[2021-03-05 00:56] VITALS: BP 121/70; PULSE 73; RESP 15; TEMP 36.6
[2021-03-05 02:16] LABS: Eosinophils % 13 % (0-3); Lymphocytes % 23 % (10-50); Monocytes % 6 % (2-9); Neutrophils % 58 % (42-76); Platelet Estimate Slight Increase; Total Cells Counted 100
[2021-03-05 02:17] LABS: Hypochromasia 1+
[2021-03-05 05:47] LABS: Barbiturates Screen,Urine Negative ng/ml (<200); Benzodiazepines Screen,Urine Negative ng/ml (<200)
[2021-03-05 05:48] LABS: Amphetamine/Metha Screen,Urine Negative ng/ml (<1000)
[2021-03-05 05:49] LABS: Cannabinoid Screen,Urine Negative ng/ml (<50); Cocaine Screen,Urine Negative ng/ml (<300)
[2021-03-05 05:50] LABS: Methadone Screen,Urine Negative ng/ml (<300)
[2021-03-05 05:51] LABS: Opiate Screen,Urine Negative ng/ml (<300); Phencyclidine Screen,Urine Negative ng/ml (<25)
== END 2021-03-05 01:03 | disposition home or self-care (01) ==
PROVIDERS: Emergency Provider Emergency Medicine; PCP Emergency Medicine
DX: F20.9 Schizophrenia, unspecified (principal); R44.1 Visual hallucinations; F99 Mental disorder, not otherwise specified; C64.9 Malignant neoplasm of unspecified kidney, except renal pelvis; J44.0 Chronic obstructive pulmonary disease with (acute) lower respiratory infection; E11.9 Type 2 diabetes mellitus without complications; F17.210 Nicotine dependence, cigarettes, uncomplicated; Z79.899 Other long term (current) drug therapy
CPT/HCPCS: 70450; 71250; 80053; 80164; 80305; 80329; 81001; 84436; 84443; 84484; 85007; 85025; 85651; 86140; 96365; 96375; 99283

== ENCOUNTER 2022-03-19 23:04 | Emergency (ER) | payer MEDICARE, MEDICAID, SELFPAY ==
[2022-03-19 22:56] VITALS: BP 158/62; PULSE 75; RESP 18; TEMP 36.6; O2SAT 99; BMI 22.3
[2022-03-19 22:58] VITALS: BMI 22.3
--- NOTE | 2022-03-19 22:58 | XR_ITS ---
PROCEDURE INFORMATION: Exam: XR Thoracic Spine Exam date and time: 03/19/2022 11:09 PM Age: 67 years old Clinical indication: Injury or trauma; Fall; Blunt trauma (contusions or hematomas); Additional info: Fell out of bed yesterday, C/O neck and back pain TECHNIQUE: Imaging protocol: XR of the thoracic spine. Views: 3 views. COMPARISON: CR XR CHEST 2V 03/19/2022 11:06 PM FINDINGS: Bones/joints: Visualized vertebral body heights are preserved. Limited study as upper thoracic spine is not well visualized on lateral radiograph. Soft tissues: Unremarkable. Other findings: Probable cholecystectomy. IMPRESSION: Visualized vertebral body heights are preserved. If symptoms persist correlate with CT or MR. Limited study.
--- NOTE | 2022-03-19 22:58 | CT_ITS ---
PROCEDURE INFORMATION: Exam: CT Head Without Contrast Exam date and time: 03/19/2022 11:25 PM Age: 67 years old Clinical indication: Injury or trauma; Fall; Blunt trauma (contusions or hematomas); Additional info: Fell out of bed yesterday, C/O neck pain TECHNIQUE: Imaging protocol: Computed tomography of the head without contrast. Radiation optimization: All CT scans at this facility use at least one of these dose optimization techniques: automated exposure control; mA and/or kV adjustment per patient size (includes targeted exams where dose is matched to clinical indication); or iterative reconstruction. COMPARISON: CT HEAD/BRAIN WO CON 03/04/2021 11:31 PM FINDINGS: Brain: Age-related volume loss. Decreased attenuation of the supratentorial white matter is likely secondary to chronic microvascular ischemia. No acute intracranial hemorrhage. No midline shift or intracranial mass effect. Cerebral ventricles: No hydrocephalus. Paranasal sinuses: Visualized sinuses are unremarkable. No fluid levels. Mastoid air cells: There is partial opacification of the right mastoid air cells. Bones/joints: Chronic posttraumatic and postoperative change involving the left facial bones. No acute calvarial fracture. Soft tissues: Unremarkable. IMPRESSION: No acute intracranial abnormality.
--- NOTE | 2022-03-19 22:58 | XR_ITS ---
PROCEDURE INFORMATION: Exam: XR Lumbosacral Spine Exam date and time: 03/19/2022 11:10 PM Age: 67 years old Clinical indication: Injury or trauma; Fall; Blunt trauma (contusions or hematomas); Additional info: Fell out of bed yesterday, C/O neck and back pain TECHNIQUE: Imaging protocol: XR of the lumbosacral spine. Views: 2 or 3 views. COMPARISON: CR XR THORACIC SPINE 3V 03/19/2022 11:09 PM FINDINGS: Bones/joints: Multilevel degenerative changes. Visualized vertebral body heights are preserved. Soft tissues: Multiple surgical clips. Vasculature: Atherosclerotic calcifications. IMPRESSION: Visualized vertebral body heights are preserved. If symptoms persist recommend correlation with CT or MR
--- NOTE | 2022-03-19 22:58 | XR_ITS ---
PROCEDURE INFORMATION: Exam: XR Pelvis Exam date and time: 03/19/2022 11:11 PM Age: 67 years old Clinical indication: Injury or trauma; Fall; Blunt trauma (contusions or hematomas); Bilateral; Hip; Additional info: Fell out of bed yesterday TECHNIQUE: Imaging protocol: XR pelvis. Views: 1 or 2 view. COMPARISON: No relevant prior studies available. FINDINGS: Bones/joints: Sacrum is obscured by overlying bowel air. No evidence of acute fracture. Soft tissues: Unremarkable. IMPRESSION: No evidence of acute fracture. If symptoms persist, recommend repeat radiograph in 5-7 days.
--- NOTE | 2022-03-19 22:58 | CT_ITS ---
PROCEDURE INFORMATION: Exam: CT Cervical Spine Without Contrast Exam date and time: 03/19/2022 11:25 PM Age: 67 years old Clinical indication: Injury or trauma; Fall; Blunt trauma; Additional info: Fell out of bed yesterday, C/O neck pain TECHNIQUE: Imaging protocol: Computed tomography images of the cervical spine without contrast. Radiation optimization: All CT scans at this facility use at least one of these dose optimization techniques: automated exposure control; mA and/or kV adjustment per patient size (includes targeted exams where dose is matched to clinical indication); or iterative reconstruction. COMPARISON: CT CHEST WO CON 03/04/2021 11:34 PM FINDINGS: Bones/joints: Mild dextroconvex curvature. Vertebral body height and AP alignment is preserved. Moderate to severe degenerative change about the dens. Moderate to severe prevertebral osteophytosis. There are bilateral facet joint degenerative changes. No acute cervical spine fracture. Discs/Spinal canal/Neural foramina: Central canal stenosis most significantly involving C4-C5, likely moderate. Thyroid: Heterogeneous thyroid gland. Lungs: Emphysema and scarring at the lung apices. Pleural spaces: No visible pneumothorax. Vasculature: Arterial vascular calcification. Soft tissues: Unremarkable. IMPRESSION: No acute cervical spine fracture.
--- NOTE | 2022-03-19 22:58 | XR_ITS ---
PROCEDURE INFORMATION: Exam: XR Chest Exam date and time: 03/19/2022 11:06 PM Age: 67 years old Clinical indication: Injury or trauma; Fall; Blunt trauma (contusions or hematomas); Additional info: Fell out of bed yesterday, C/O neck and back pain TECHNIQUE: Imaging protocol: XR of the chest. Views: 2 views. COMPARISON: CT CHEST WO CON 03/04/2021 11:34 PM FINDINGS: Lungs: No focal consolidation. Pleural spaces: No pleural effusion. No pneumothorax. Heart/Mediastinum: Unremarkable cardiomediastinal silhouette. Bones/joints: No acute osseous findings. IMPRESSION: No focal consolidation.
--- NOTE | 2022-03-19 23:24 | HMH.EDBACK ---
ED Disposition Clinical Impression: Strain of lumbar region Qualifiers: Encounter type: initial encounter Qualified Code(s): S39.012A - Strain of muscle, fascia and tendon of lower back, initial encounter Thoracic back pain Qualifiers: Chronicity: acute Back pain laterality: unspecified Qualified Code(s): M54.6 - Pain in thoracic spine Fall Qualifiers: Encounter type: initial encounter Qualified Code(s): W19.XXXA - Unspecified fall, initial encounter Disposition: Home, Self-Care Condition on Discharge: Good Instructions: DI for Low Back Pain Additional Instructions: advi;.tyenol and see pcp for follow up Referrals: Stephane Brown MD [Primary Care Provider] - - Critical Care Critical Care Time: No Attestation: On , the high probability of a clinically significant, sudden or life threatening deterioration of the following system(s) required my full and direct attention, intervention and personal management. The time I documented below is in addition to time spent performing reported procedures but includes the following listed in this critical care notation. Medical Decision Making - Medical Records Medical records reviewed: Yes: I reviewed the patient's medical records. - Derrell Inquiry Pt receiving controlled substance: No Vital Signs: 03/19/22 22:56 Temperature 97.8 F Temperature Source Oral Pulse Rate [Right] 75 Respiratory Rate 18 Blood Pressure [Right Arm] 158/62 H Blood Pressure Mean [Right Arm] 94 02 Sat by Pulse Oximetry 99 - Lab Data Lab results reviewed: Yes: I reviewed the patient's lab results. - Radiology Data #1 Image(s): Chest, T-Spine, L-Spine, Pelvis Image Reviewed: Yes I discussed the image results w/the radiologist Preliminary Findings: No Fracture Seen - CT Data CT Scan: Head, C-Spine Time Received: 01:[address] Reviewed: Yes: I have viewed the radiologist's interpretation Preliminary Findings: No Fracture Seen Medical Decision Narrative: stable exam and no fx seen Back Pain HPI - General Chief Complaint: Back Pain/Injury Stated Complaint: back pain Time Seen by Provider: 03/19/22 23:24 Mode of Arrival: Ambulatory Source of Information: Patient, EMS, Medical Record Limitations: No Limitations Description of Symptoms (Recalled from ER Triage Doc. by RN): pt states he fell yesterday out of bed and is c/o back pain - History of Present Illness HPI Narrative: fell at [facility] and has back pain MD Complaint: back pain Onset (ago): minute(s) Similar Symptoms Previously: Yes Location: lumbar spine, thoracic spine Severity: moderate Context: fall Associated symptoms: denies other symptoms - Related Data Home Medications Medication Instructions Recorded Confirmed Albuterol Sulfate [Proair 1 puff IH Q6HP PRN 02/23/21 02/22/22 Digihaler] Aspirin [Aspirin 325mg Tab] 325 mg PO DAILY 02/23/21 02/22/22 Azelastine HCl [Azelastine Nasal 2 sprays NS BID 02/23/21 02/22/22 [place] 30mL Bottle] Divalproex Sodium [Divalproex 500 mg PO TID 02/23/21 02/22/22 Sodium ER] Ferrous Sulfate 325 mg PO BID 02/23/21 02/22/22 Ipratropium/Albuterol Sulfate 1 puff IH TID 02/23/21 02/22/22 [Combivent Respimat Inh] Isosorbide Mononitrate [Isosorbide 30 mg PO DAILY 02/23/21 02/22/22 Mononitrate ER] Levothyroxine Sodium 25 mcg PO DAILY 02/23/21 02/22/22 [Levothyroxine 25mcg (0.025mg) Tab] Metformin HCl [Metformin 1000mg 1,000 mg PO BIDWM 02/23/21 02/22/22 Tablets] Metoprolol Succinate [Metoprolol 100 mg PO BID 02/23/21 02/22/22 Succinate 100mg Tablet*] Nitroglycerin 0.4 mg SL Q5MINP PRN 02/23/21 02/22/22 OLANZapine [Zyprexa 5mg tablet] 5 mg PO HS 02/23/21 02/22/22 Omeprazole 20 mg PO DAILY 02/23/21 02/22/22 Roflumilast [Daliresp] 250 mcg PO DAILY 02/23/21 02/22/22 Rosuvastatin Calcium 10 mg PO HS 02/23/21 02/22/22 Sennosides/Docusate Sodium 1 each PO DAILY 02/23/21 02/22/22 [Senexon-S 50-8.6 mg Tablet] Sertraline HCl 150 mg PO DAILY 04
[2022-03-20 01:51] VITALS: BP 147/74; PULSE 72; RESP 18; TEMP 36.6; O2SAT 99
--- NOTE | 2022-03-20 01:51 | PC.NURSE ---
Cha notified that patient was ready to be discharged
--- NOTE | 2022-03-20 01:57 | PC.NURSE ---
DR. PANCHAL MADE AWARE OF PT REQUEST FOR BED RAILS AT HIS CURRENT LIVING FACILITY.
== END 2022-03-20 02:13 | disposition home or self-care (01) ==
PROVIDERS: Emergency Provider Emergency Medicine; PCP Emergency Medicine
DX: S39.012A Strain of muscle, fascia and tendon of lower back, initial encounter (principal); W06.XXXA Fall from bed, initial encounter; Y92.099 Unspecified place in other non-institutional residence as the place of occurrence of the external cause; E11.9 Type 2 diabetes mellitus without complications; F17.210 Nicotine dependence, cigarettes, uncomplicated; Z79.899 Other long term (current) drug therapy
CPT/HCPCS: 70450; 71046; 72072; 72100; 72125; 72170; 99284

== ENCOUNTER 2022-05-17 14:55 | Emergency (ER) | payer MEDICARE, MEDICAID, SELFPAY ==
[2022-05-17] VITALS (9 sets, daily range): BP systolic 119–138; BP diastolic 67–85; PULSE 62–75; RESP 16–18; TEMP 36.4; O2SAT 98–100; BMI 22.9
--- NOTE | 2022-05-17 15:54 | XR_ITS ---
FINAL REPORT CLINICAL HISTORY: diabetes/redness/swelling FINDINGS: RIGHT FOOT: Three views of the right foot were obtained. There is no acute fracture or dislocation. There is mild degenerative change. There are presumed chronic erosions at the distal aspect of the 1st proximal phalanx and the proximal aspect of the 1st distal phalanx. There is no soft tissue abnormality. IMPRESSION: Mild degenerative change with presumed chronic erosions as described. No acute bony abnormality. Reviewed, Interpreted and Dictated by Rene Liriano III, MD Transcribed by Guerita Alvarado Authenticated and [facility][1]
--- NOTE | 2022-05-17 15:54 | CT_ITS ---
FINAL REPORT CLINICAL HISTORY: diabetes/redness/swelling FINDINGS: CT RIGHT FOOT WITHOUT CONTRAST Technique: Axial images through the right foot were performed by computed tomography. Sagittal and coronal reconstruction images were performed. This study was performed with techniques to keep radiation doses as low as reasonably achievable (ALARA). Individualized dose reduction techniques using automated exposure control or adjustment of mA and/or kV according to the patient's size were employed. There is a chronic fracture of the distal fibula. There is bony fusion of the distal tibia and fibula at this level. No fracture is identified. No dislocation identified. There are bony erosions of the distal aspect of the 1st proximal phalanx in the proximal aspect of the 1st distal phalanx that are favored to be chronic. Osteomyelitis cannot entirely be excluded. There is no other evidence of bony erosion. No soft tissue abnormality. IMPRESSION: Bony erosions of the distal aspect of the 1st proximal phalanx and proximal aspect of the 1st distal phalanx is favored chronic. Osteomyelitis cannot entirely be excluded. If indicated, MRI could further evaluate. Chronic fracture of the distal fibula with bony fusion of the distal tibia and fibula. Reviewed, Interpreted and Dictated by Rene Liriano III, MD Transcribed by Bryant Peck Authenticated and . [facility]
[2022-05-17 17:04] LABS: Basophils # 0.1 K/mm3 (0-0.2); Basophils % 0.9 % (0.1-2.0); Eosinophils # 0.6 K/mm3 (0.0-0.4); Hematocrit 39.6 % (42.0-52.0); Hemoglobin 12.6 g/dL (14.1-18.0); Lymphocytes # 2.8 K/mm3 (0.7-4.5); Mean Corpuscular HGB Conc 31.9 g/dL (31.8-35.4); Mean Corpuscular Hemoglobin 29.7 pg (27.0-31.2); Mean Corpuscular Volume 93.2 fl (80-94); Mean Platelet Volume 8.1 fl (7.4-10.4); Monocytes % 7.6 % (1.7-9.3); Neutrophils # 8.1 K/mm3 (1.8-7.8); Neutrophils % 64.5 % (37.0-80.0); Platelet Count 620 K/mm3 (142-424); Red Blood Count 4.26 M/mm3 (4.60-6.20); Red Cell Distribution Width 14.2 % (11.5-17.5); White Blood Count 12.6 K/mm3 (4.8-10.8)
--- NOTE | 2022-05-17 17:05 | HMH.EDSKAF ---
ED Disposition Clinical Impression: Cellulitis of toe of right foot, PVD (peripheral vascular disease), Chronic schizophrenia Diabetes mellitus Qualifiers: Diabetes mellitus type: type 2 Diabetes mellitus termite technician insulin use: unspecified termite technician insulin use status Diabetes mellitus complication status: with other specified complication Qualified Code(s): E11.69 - Type 2 diabetes mellitus with other specified complication Disposition: Home, Self-Care Condition on Discharge: Good Instructions: Peripheral Artery Disease Additional Instructions: use meds and see podiatry and card next week as op Prescriptions: clindamycin HCL [Clindamycin HCl] 300 mg PO TID #30 cap Transmission Status: Pending to [facility] Amlodipine Besylate [Norvasc 2.5mg tablet] 2.5 mg PO DAILY #30 tab Transmission Status: Pending to [facility] Rivaroxaban [Xarelto 2.5mg Tab*] 2.5 mg PO BID #60 tab Transmission Status: Pending to [facility] Referrals: Provider,Referral, [Primary Care Provider] - - Critical Care Critical Care Time: No Attestation: On 05/17/22, the high probability of a clinically significant, sudden or life threatening deterioration of the following system(s) required my full and direct attention, intervention and personal management. The time I documented below is in addition to time spent performing reported procedures but includes the following listed in this critical care notation. Medical Decision Making - Medical Records Medical records reviewed: Yes: I reviewed the patient's medical records. - Derrell Inquiry Pt receiving controlled substance: No Vital Signs: 05/17/22 15:00 05/17/22 15:30 05/17/22 16:00 Temperature 97.5 F L Temperature Source Oral Pulse Rate 64 64 Pulse Rate [Left Radial] 62 Respiratory Rate 17 18 17 Blood Pressure 129/78 130/77 Blood Pressure [Right Arm] 133/76 Blood Pressure Mean [Right Arm] 95 02 Sat by Pulse Oximetry 98 98 99 Oxygen Delivery Method Room Air 05/17/22 16:30 05/17/22 17:00 05/17/22 17:30 Temperature Temperature Source Pulse Rate 70 75 74 Pulse Rate [Left Radial] Respiratory Rate 18 16 16 Blood Pressure 119/67 122/85 138/74 Blood Pressure [Right Arm] Blood Pressure Mean [Right Arm] 02 Sat by Pulse Oximetry 100 98 99 Oxygen Delivery Method 05/17/22 18:00 05/17/22 18:30 Temperature Temperature Source Pulse Rate 70 72 Pulse Rate [Left Radial] Respiratory Rate 16 18 Blood Pressure 128/76 125/83 Blood Pressure [Right Arm] Blood Pressure Mean [Right Arm] 02 Sat by Pulse Oximetry 99 99 Oxygen Delivery Method - Lab Data Lab results reviewed: Yes: I reviewed the patient's lab results. Lab Results 05/17/22 16:54: WBC 12.6 H, RBC 4.26 L, Hgb 12.6 L, Hct 39.6 L, MCV 93.2, MCH 29.7, MCHC 31.9, RDW 14.2, Plt Count 620 H, MPV 8.1, Neut % (Auto) 64.5, Lymph % (Auto) 22.0, [place] % (Auto) 7.6, Eos % (Auto) 5.0, Baso % (Auto) 0.9, Neut # (Auto) 8.1 H, Lymph # (Auto) 2.8, [place] # (Auto) 1.0, Eos # (Auto) 0.6 H, Baso # (Auto) 0.1 05/17/22 16:54: Sodium 136, Potassium 4.3, Chloride 97 L, Carbon Dioxide 32 H, Anion Gap 11.3, BUN 7 L, Creatinine 0.70, Estimated Creat Clear 76, Estimated GFR 113, Est GFR ( Amer) 137, Glucose 122 H, Calcium 8.9, Total Bilirubin 0.3, AST 24, ALT 18, Alkaline Phosphatase 110, Total Protein 7.5, Albumin 3.9, Globulin 3.6 H, Albumin/Globulin Ratio 1.1 05/17/22 16:54: Lactate 1.5 05/17/22 17:20: SARS-CoV-2 (PCR) Not detected, Influenza A Untype (PCR) Not detected, Influenza Type B (PCR) Not detected Result diagrams: 05/17/22 16:54 05/17/22 16:54 Orders (Tests/Meds): ED MEDICATIONS Discontinued Medications Generic Name Dose Route Start Last Admin Trade Name Freq PRN Reason Stop Dose Admin Iopamidol 120 ml 05/17/22 18:33 05/17/22 18:35 Iopamidol-370 (76%);100ml Bottle IV 05/17/22 18:34 120 ml ONCE ONE Adminis
[2022-05-17 17:11] LABS: Chloride 97 mmol/L (98-107); Potassium 4.3 mmoL/L (3.5-5.1); Sodium 136 mmol/L (136-145)
[2022-05-17 17:13] LABS: Alanine Aminotransferase 18 U/L (12-78); Alkaline Phosphatase 110 U/L (38-126); Anion Gap 11.3 mEq/L (5-15); Aspartate Amino Transferase 24 U/L (17-59); Bilirubin,Total 0.3 mg/dl (0.2-1.3); Blood Urea Nitrogen 7 mg/dl (9-20); Carbon Dioxide 32 mmol/L (22.0-30.0); Creatinine Clearance Estimated 76 mL/min (50-200); Estimated Glomerular Filt Rate 113 ml/min (>60); GFR (African American) 137 ML/MIN (>60)
[2022-05-17 17:14] LABS: Albumin Level 3.9 g/dl (3.5-5.0); Albumin/Globulin Ratio 1.1 (1.1-1.8); Calcium 8.9 mg/dl (8.4-10.2); Globulin 3.6 g/dL (1.3-3.2); Glucose 122 mg/dl (74-100); Total Protein,Serum 7.5 g/dl (6.3-8.2)
[2022-05-17 17:15] LABS: Lactic Acid 1.5 mmol/L (0.7-2.1)
--- NOTE | 2022-05-17 17:20 | PC.NURSE ---
FLO BARRERA spoke with dr. barton
--- NOTE | 2022-05-17 17:20 | PC.NURSE ---
pt sitting in recliner foot propped up. Pt reports is comfortable at this time. Will continue to monitor
--- NOTE | 2022-05-17 17:28 | CT_ITS ---
PROCEDURE INFORMATION: Exam: CTA Abdominal Aorta and Bilateral Lower Extremities (Run-off) With Contrast Exam date and time: 05/17/2022 5:53 PM Age: 67 years old Clinical indication: Discoloration or erythema; Foot; Bilateral; Additional info: Run off per Dr. Arguello, PT is diabetic. TECHNIQUE: Imaging protocol: Computed tomographic angiography of the of the abdominal aorta, pelvis and bilateral lower extremities with contrast. 3D rendering (Not supervised by radiologist): MIP and/or 3D reconstructed images were created by the technologist. Radiation optimization: All CT scans at this facility use at least one of these dose optimization techniques: automated exposure control; mA and/or kV adjustment per patient size (includes targeted exams where dose is matched to clinical indication); or iterative reconstruction. Contrast material: ISOVUE; Contrast volume: 120 ml; Contrast route: IV; COMPARISON: CT FOOT RT WO CON 05/17/2022 4:02 PM FINDINGS: Aorta: No aortic aneurysm. No aortic dissection. Celiac trunk and mesenteric arteries: No occlusion or significant stenosis. Renal arteries: No occlusion or significant stenosis. Right iliac arteries: No occlusion or significant stenosis. Right femoral/popliteal arteries: No occlusion or significant stenosis. Right infrapopliteal arteries: There is suboptimal opacification of the right anterior, posterior tibial arteries and peroneal arteries and dorsalis pedis arteries which could be indicating occlusion or slow flow Left iliac arteries: No occlusion or significant stenosis. Left femoral/popliteal arteries: No occlusion or significant stenosis. Left infrapopliteal arteries: There is suboptimal opacification of the distal left anterior tibial artery, posterior tibial artery which could be due to occlusion or slow flow. Liver: No mass. Gallbladder and bile ducts: Unremarkable. No calcified stones. No ductal dilation. Pancreas: Unremarkable. No mass. No ductal dilation. Spleen: Normal. No splenomegaly. Adrenal glands: Normal. No mass. Kidneys and ureters: Left kidney is absent. Right kidney is normal. Stomach and bowel: Unremarkable. No obstruction. No mucosal thickening. Appendix: No evidence of appendicitis. Urinary bladder: Unremarkable. No mass. Reproductive: Unremarkable as visualized. Intraperitoneal space: Unremarkable. No free air. No significant fluid collection. Lymph nodes: No lymphadenopathy. Bones/joints: No acute fracture. No dislocation. Soft tissues: Unremarkable. Other findings: . IMPRESSION: 1. There is suboptimal opacification of the right anterior, posterior tibial arteries and peroneal arteries and dorsalis pedis arteries which could be indicating occlusion or slow flow 2. . 3. There is suboptimal opacification of the distal left anterior tibial artery, posterior tibial artery which could be due to occlusion or slow flow.
[2022-05-17 17:29] LABS: Coronavirus 19, PCR Not Detected (NotDetected); Influenza A, PCR Not Detected (NotDetected); Influenza B, PCR Not Detected (NotDetected)
--- NOTE | 2022-05-17 17:32 | PC.NURSE ---
rad aware of CTA order
--- NOTE | 2022-05-17 18:11 | PC.NURSE ---
PT IN CT
--- NOTE | 2022-05-17 18:19 | PC.NURSE ---
pt to ct via wheelchair
--- NOTE | 2022-05-17 18:55 | PC.NURSE ---
pt back from ct
--- NOTE | 2022-05-17 20:19 | PC.NURSE ---
Dr. Arguello paged for Dr. Brown, Dr. Brown on phone with Dr. Arguello
--- NOTE | 2022-05-17 20:47 | PC.NURSE ---
DRESSING APPLIED TO RIGHT TOE PER Ike MCARTHUR, EMT. DISCHARGE PAPERWORK REVIEWED WITH PATIENT. NEW PRESCRIPTIONS REVIEWED WITH PATIENT. INFORMED PATIENT WE WOULD GIVE HIS PAPERWORK TO HIS ESTHETIC DERMATOLOGIST FROM [facility]. PATIENT TAKEN OUT IN A W/C.
== END 2022-05-17 20:49 | disposition home or self-care (01) ==
PROVIDERS: Emergency Provider Emergency Medicine
DX: F20.9 Schizophrenia, unspecified (principal); L03.031 Cellulitis of right toe; I73.9 Peripheral vascular disease, unspecified; Z88.8 Allergy status to other drugs, medicaments and biological substances; Z72.0 Tobacco use
CPT/HCPCS: 73630; 73700; 73701; 80053; 83605; 85025; 87040; 99284; C9803; Q9967; U0003; U0005

== ENCOUNTER → 2022-06-26 11:00 | Outpatient (CLI) | payer MEDICARE, MEDICAID, SELFPAY ==
--- NOTE | 2022-06-26 | CA_ITS ---
APPROVED REPORT Exam: Exercise Treadmill Technologist: Sophie Guadalupe, Ht: 5 ft 11 in Wt: 161 lbs BSA: 1.92 m2 HR: 56 bpm BP: 155/74 mmHg Medical History Medications: See List,,,,, Stress Test Details Test: Manual Treadmill HR Resting HR: 60 bpm Max Heart Rate (APMHR): 155.933453 bpm Max HR Achieved: 101 bpm Target HR (85% APMHR): 131.659751 bpm % of APMHR: 65.16 Recovery HR: 57 bpm BP Resting BP: 155/74 mmHg Max BP: 160/57 mmHg Recovery BP: 156.0/59.0 mmHg ECG Resting ECG: NSR, normal Clinical Exercise duration: 02:24 min Highest Stage Achieved: stage I Exercise capacity: 2.3 METs Stress ECG Conclusion Walked 2:24 into stage I of Modified Jelani Protocol. Max HR: 86 % of PM: 55% Max BP: 160/57 METs: 2.3 Test stopped due to: SOA, Fatigue Symptoms: No CP Arrhythmias/Ectopy: None ST-T Changes: Allowing for motion artifact, the ST response to exercise appears to be within normal for HR acheived Conclusion: Non-diagnostic GXT due to blunted HR response on Beta-blockers and very limited exercise tolerance. Echo images reported separately Test Summary REST . . . . . . . Standing REST . . . . . . . Sitting REST 13:17 0.0 0.0 60 . 155/ 74 . . Stage 1 01:00 0.0 1.7 74 . . . . Stage 1 02:00 0.0 1.7 81 . . . . Stage 1 02:24 0.0 1.7 84 . . . Stop exercise at 02:24 RECOVERY . . . . . . . Protocol changed to Manual Treadmill RECOVERY 01:00 0.0 0.0 75 . . . . RECOVERY 02:00 0.0 0.0 65 . . . . RECOVERY 03:00 0.0 0.0 62 . 160/ 57 . . RECOVERY 04:00 0.0 0.0 59 . 160/ 57 . . RECOVERY 05:00 0.0 0.0 58 . 156/ 59 . . RECOVERY 05:29 0.0 0.0 58 . 156/ 59 . . Electronically signed by : Stephen Wong MD 06/26/2022 20:36:15
--- NOTE | 2022-06-26 11:02 | CA_ITS ---
APPROVED REPORT EXAM: Comprehensive 2D, Doppler, and color-flow Echocardiogram Developer [employer]: Jocelyn Green RDCS Ht: 5 ft 11 in Wt: 161lbs BSA: 1.92 BP: 155/65 mmHg Indications: EXERCISE STRESS ECHO CAD,CP DIFFICULTY WALKING,BETA BLOCKERS, POOR EXERCISE TOLERANCE, TDS SECONDARY COPD POOR IMAGE QUALITY MODIFIED JELANI PROTOCAL USED WALKED 2MIN 35SEC Stress Test Details HR Max Heart Rate (APMHR): 155.895447 bpm Target HR (85% APMHR): 131.759104 bpm BP ECG Conclusion 1. Patient exercised on Jelani protocol has extremely poor exercise capacity less than 3 months, EKG was nondiagnostic as patient did not achieve the target heart rate. 2. Normal left ventricular size and function at rest, very suboptimal and poor exercise capacity to assess provokable segmental wall motion abnormality with exercise to detect ischemic heart disease. 3. Nondiagnostic stress echo if clinically indicated a repeat study with myocardial perfusion imaging with Lexiscan is recommended. Electronically signed by : Stephen Wong MD 06/26/2022 20:38:10
== END ==
PROVIDERS: PCP Emergency Medicine; Visit Provider Nurse Practitioner
DX: E11.9 Type 2 diabetes mellitus without complications (principal); E78.5 Hyperlipidemia, unspecified; I10 Essential (primary) hypertension; I73.9 Peripheral vascular disease, unspecified; R06.00 Dyspnea, unspecified; R07.9 Chest pain, unspecified; R42 Dizziness and giddiness; R53.83 Other fatigue; I20.8 Other forms of angina pectoris; Z79.84 Long term (current) use of oral hypoglycemic drugs
CPT/HCPCS: 93017; 93350